=== PATIENT | female | born 1950 | race Caucasian/White ===

== ENCOUNTER 2016-08-02 13:54 | Outpatient (CLI) | payer BC ==
[2016-08-02 14:46] LABS: eGFR (African) > 60; eGFR (Non-African) > 60
== END 2016-08-02 13:55 ==
LOC: LAB 13:54
PROVIDERS: ATTEND Family Medicine
DX: E78.2 Mixed hyperlipidemia (principal)
CPT/HCPCS: 36415; 80053; 80061

== ENCOUNTER 2019-02-11 10:26 | Outpatient (CLI) | payer BC, MEDICARE ==
[2019-02-11 11:26] LABS: eGFR (Non-African) > 60
[2019-02-11 11:27] LABS: HDL 67 mg/dL (>40)
== END 2019-02-11 10:28 ==
LOC: LAB 10:26
PROVIDERS: ATTEND Family Medicine
DX: E78.2 Mixed hyperlipidemia (principal)
CPT/HCPCS: 36415; 80053; 80061

== ENCOUNTER 2019-03-31 15:16 | Outpatient (CLI) | payer MEDICARE, BC | END 2019-03-31 15:18 | LOC: LAB 15:16 | PROVIDERS: ATTEND Family Medicine | DX: E04.1 Nontoxic single thyroid nodule (principal) | CPT/HCPCS: 36415; 84443 ==